=== PATIENT | male | born 1990 | race Caucasian/White ===

== ENCOUNTER 2018-12-30 08:20 | Emergency (ER) | payer OTHER ==
[2018-12-30 08:55] LABS: ADD MAN DIFF? NO
[2018-12-30 08:56] LABS: WHITE BLOOD COUNT 8.5 10^3/ul (4.8-10.8)
[2018-12-30 08:56] LABS: BASOPHILS % 0.4 % (0.0-2.0); EOSINOPHILS # 0.2 10^3/ul (0.0-0.5); EOSINOPHILS % 1.8 % (0.0-7.0); HEMATOCRIT 50.1 % (42.0-52.0); HEMOGLOBIN 16.5 g/dl (14.0-18.0); LYMPHOCYTES % 23.2 % (15.0-51.0); MEAN CORPUSCULAR HEMOGLOBIN 29.7 pg (29.0-33.0); MEAN CORPUSCULAR HGB CONC 32.9 g/dl (32.0-37.0); MEAN CORPUSCULAR VOLUME 90.3 fl (82.0-101.0); MEAN PLATELET VOLUME 9.6 fl (7.4-10.4); MONOCYTE # 0.6 10^3/ul (0.3-0.9); MONOCYTES % 6.7 % (0.0-11.0); NEUTROPHIL # 5.8 10^3/ul (1.6-7.5); NEUTROPHILS % 67.5 % (39.0-77.0); PLATELET COUNT 231 10^3/UL (140-415); RED BLOOD COUNT 5.55 10^6/ul (4.70-6.10); RED CELL DISTRIBUTION WIDTH 12.1 % (11.5-14.5)
[2018-12-30 09:13] LABS: ANION GAP 11 (5-13); BLOOD UREA NITROGEN 16 mg/dl (7-20); CALCIUM 9.6 mg/dl (8.4-10.2); CARBON DIOXIDE 29 mmol/L (21-31); CHLORIDE 102 mmol/L (97-110); CREATININE 0.92 mg/dl (0.61-1.24); Estimated GFR > 60 mL/min (>60); GLUCOSE 107 mg/dl (70-220); POTASSIUM 4.1 mmol/L (3.5-5.1); SODIUM 142 mmol/L (135-144)
[2018-12-30 09:20] LABS: D-DIMER 328.51 ng/ml (<460)
[2018-12-30 09:23] LABS: TROPONIN-I < 0.012 ng/ml (0.000-0.120)
[2018-12-30 12:16] LABS: TROPONIN-I < 0.012 ng/ml (0.000-0.120)
== END 2018-12-30 13:07 | disposition home or self-care (01) ==
LOC: E/R 08:20
DX: R07.89 Other chest pain (principal); I25.10 Atherosclerotic heart disease of native coronary artery without angina pectoris
CPT/HCPCS: 36415; 71045; 80048; 84484; 85025; 85378; 99285-25